=== PATIENT | female | born 1935 | race Caucasian/White ===

== ENCOUNTER → 2018-01-02 11:06 | Outpatient (CLI) | payer MEDICARE, OTHER, SELFPAY ==
--- NOTE | 2018-01-02 | DI.MG.S_ITS ---
BILATERAL DIGITAL SCREENING MAMMOGRAM 3D/2D WITH CAD: 01/02/2018 CLINICAL: Routine screening. Comparison is made to exams dated: 12/09/2012 mammogram, 01/11/2011 mammogram, and 05/19/2009 mammogram - [facility]. There are scattered fibroglandular elements in both breasts. Current study was also evaluated with a Computer Aided Detection (CAD) system. There are benign vascular calcifications in both breasts. There is a mole marker on the left breast. No significant masses, calcifications, or other findings are seen in either breast. There has been no significant interval change. IMPRESSION: There is no mammographic evidence of malignancy. A 1 year screening mammogram is recommended.(01/03/2019) This exam was interpreted at Station ID: [id number]. NOTE: For mammograms, a report in lay terms will be sent to the patient. Approximately 15% of breast malignancies will not be visualized mammographically. In the management of a palpable breast mass, a negative mammogram must not discourage biopsy of a clinically suspicious lesion. Electronically Signed By: Adrian bello/lea:01/03/2018 12:02:35 letter sent: Normal Exam ACR BI-RADS Category 2: Benign Finding(s) 3342F
== END ==
PROVIDERS: Family Provider Family Medicine; PCP Family Medicine; Visit Provider Family Medicine
DX: Z12.31 Encounter for screening mammogram for malignant neoplasm of breast (principal)
CPT/HCPCS: 77063; 77067

== ENCOUNTER → 2019-02-06 15:15 | Outpatient (CLI) | payer MEDICARE, OTHER, SELFPAY ==
--- NOTE | 2019-02-06 | DI.MG.S_ITS ---
BILATERAL DIGITAL SCREENING MAMMOGRAM 3D/2D WITH CAD: 02/06/2019 CLINICAL: Routine screening. Comparison is made to exams dated: 01/02/2018 mammogram - [facility], 12/09/2012 mammogram, and 01/11/2011 mammogram - [facility]. There are scattered fibroglandular elements in both breasts. Current study was also evaluated with a Computer Aided Detection (CAD) system. There are benign calcifications in both breasts. There also are benign vascular calcifications in both breasts. There is a mole marker on the left breast. No significant masses, calcifications, or other findings are seen in either breast. There has been no significant interval change. IMPRESSION: There is no mammographic evidence of malignancy. A 1 year screening mammogram is recommended. This exam was interpreted at Station ID: [id number]. NOTE: For mammograms, a report in lay terms will be sent to the patient. Approximately 15% of breast malignancies will not be visualized mammographically. In the management of a palpable breast mass, a negative mammogram must not discourage biopsy of a clinically suspicious lesion. Electronically Signed By: Slade dodd/lea:02/06/2019 15:59:45 letter sent: Normal Exam ACR BI-RADS Category 2: Benign Finding(s) 3342F
== END ==
PROVIDERS: PCP Family Medicine; Visit Provider Family Medicine
DX: Z12.31 Encounter for screening mammogram for malignant neoplasm of breast (principal)
CPT/HCPCS: 77063; 77067

== ENCOUNTER → 2020-03-08 16:16 | Outpatient (CLI) | payer MEDICARE, OTHER, SELFPAY ==
--- NOTE | 2020-03-08 16:18 | DI.MG.S_ITS ---
BILATERAL DIGITAL SCREENING MAMMOGRAM 3D/2D WITH CAD: 03/08/2020 CLINICAL: Routine screening. Comparison is made to exams dated: 02/06/2019 mammogram, 01/02/2018 mammogram - [facility], and 12/09/2012 mammogram - [facility]. There are scattered fibroglandular elements in both breasts. Current study was also evaluated with a Computer Aided Detection (CAD) system. There are benign calcifications in both breasts. There also are benign vascular calcifications in both breasts. There is a mole marker on the left breast. No significant masses, calcifications, or other findings are seen in either breast. There has been no significant interval change. IMPRESSION: BENIGN There is no mammographic evidence of malignancy. A 1 year screening mammogram is recommended. This exam was interpreted at Station ID: [id number]. NOTE: For mammograms, a report in lay terms will be sent to the patient. Approximately 15% of breast malignancies will not be visualized mammographically. In the management of a palpable breast mass, a negative mammogram must not discourage biopsy of a clinically suspicious lesion. Electronically Signed By: Keanu bacon/lea:03/08/2020 19:45:14 letter sent: Normal Exam ACR BI-RADS Category 2: Benign Finding(s) 3342F
== END ==
PROVIDERS: PCP Family Medicine; Referring Provider Family Medicine; Visit Provider Family Medicine
DX: Z12.31 Encounter for screening mammogram for malignant neoplasm of breast (principal)
CPT/HCPCS: 77063; 77067

== ENCOUNTER → 2022-01-17 14:18 | Outpatient (CLI) | payer MEDICARE, OTHER, SELFPAY ==
--- NOTE | 2022-01-17 | DI.RAD.S_ITS ---
PROCEDURE: XR SHOULDER LT MIN 2V INDICATIONS: PAIN IN LT/RT SHOULDER TECHNIQUE: 3 views of the shoulder were acquired. COMPARISON: [facility], CR, XR SHOULDER RT MIN 2V, 01/17/2022, 14:29. FINDINGS: Bones: No fractures or dislocations. No suspicious bony lesions. Downsloping acromion. Mild glenohumeral joint degeneration. Visualized ribs appear intact. Soft tissues: No suspicious soft tissue calcifications. IMPRESSION: 1. Downsloping acromion, which could impinge the rotator cuff tendons. If clinical symptoms persist or clinical suspicion for internal derangement is high, MRI is suggested for further evaluation. 2. Mild glenohumeral joint degeneration Dictated by: Meg Monroy M.D. on 01/17/2022 at 16:59 Approved by: Meg Monroy M.D. on 01/17/2022 at 17:00
--- NOTE | 2022-01-17 14:25 | DI.RAD.S_ITS ---
PROCEDURE: XR SHOULDER RT MIN 2V INDICATIONS: PAIN IN LT/RT SHOULDER TECHNIQUE: 3 views of the shoulder were acquired. COMPARISON: [facility], CR, XR SHOULDER LT MIN 2V, 01/17/2022, 14:29. FINDINGS: Bones: No fractures or dislocations. No suspicious bony lesions. Mild acromioclavicular and glenohumeral joint degeneration. Visualized ribs appear intact. Soft tissues: No suspicious soft tissue calcifications. IMPRESSION: No acute osseous abnormalities. Mild degenerative joint disease. If clinical symptoms persist or clinical suspicion for internal derangement is high, MRI is suggested for further evaluation. Dictated by: Meg Monroy M.D. on 01/17/2022 at 16:58 Approved by: Meg Monroy M.D. on 01/17/2022 at 16:59
--- NOTE | 2022-01-17 14:25 | DI.RAD.S_ITS ---
PROCEDURE: XR CERVICAL SPINE 2V OR 3V INDICATIONS: PAIN IN LT/RT SHOULDER TECHNIQUE: 3 view(s) of the cervical spine were acquired. COMPARISON: None. FINDINGS: Bones: No fractures or dislocations to the T1 level. The lateral masses of C1 appear intact on the odontoid view. No suspicious bony lesions. Disc space narrowing and facet arthropathy noted in the mid cervical spine. Grade 1 degenerative anterior spondylolisthesis noted at C3-4 Soft tissues: No prevertebral soft tissue swelling. 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 on 01/17/2022 at 18:00
--- NOTE | 2022-01-17 14:25 | DI.RAD.S_ITS ---
PROCEDURE: XR THORACIC SPINE 3V INDICATIONS: PAIN IN LT/RT SHOULDER TECHNIQUE: 3 views of the thoracic spine were acquired. COMPARISON: None. FINDINGS: Bones: No fractures or dislocations. No suspicious bony lesions. 12 pairs of ribs are noted, and appear intact where visualized. Soft tissues: No paravertebral stripe thickening. Incidental note is made of air beneath the right hemidiaphragm, partially imaged. Aortic atherosclerotic vascular calcification noted in the arch. IMPRESSION: 1. Unremarkable thoracic spine 2. Air beneath the right hemidiaphragm, partially imaged. While this probably reflects a colonic interposition, consider follow-up full right chest x-ray or CT to evaluate for pneumoperitoneum Approved by: Rivas Baeza M.D. on 01/17/2022 at 17:59
== END ==
PROVIDERS: PCP Family Medicine; Referring Provider Family Medicine; Visit Provider Family Medicine
DX: M19.011 Primary osteoarthritis, right shoulder (principal); M19.012 Primary osteoarthritis, left shoulder; I70.0 Atherosclerosis of aorta; M47.812 Spondylosis without myelopathy or radiculopathy, cervical region; M50.30 Other cervical disc degeneration, unspecified cervical region; M25.511 Pain in right shoulder; M25.512 Pain in left shoulder
CPT/HCPCS: 72040; 72072; 73030

== ENCOUNTER → 2022-01-24 14:18 | Outpatient (CLI) | payer MEDICARE, OTHER, SELFPAY ==
--- NOTE | 2022-01-24 14:20 | DI.RAD.S_ITS ---
PROCEDURE: XR CHEST 2V INDICATIONS: Hypertension TECHNIQUE: 2 views of the chest were acquired. COMPARISON: [facility], CR, XR THORACIC SPINE 3V, 01/17/2022, 14:29. FINDINGS: Surgical changes and devices: None. Lungs and pleura: Lungs are clear. No pleural effusions or pneumothorax. 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 Mediastinum: Mediastinal contours are normal. Heart size is normal. Bones and chest wall: No suspicious bony abnormalities. Soft tissues appear unremarkable. IMPRESSION: 1. Interposition of bowel between the right hemidiaphragms and the and the liver and spleen; otherwise no acute cardiopulmonary disease. Dictated by: Roderick Martinez [facility] Interpreted: Angie Arango MD on 01/24/2022 at 14:38 Transcribed by: EFRAIN on 01/24/2022 at 14:39 Approved by: Angie Arango M.D. on 01/24/2022 at 15:39
== END ==
PROVIDERS: PCP Family Medicine; Referring Provider Family Medicine; Visit Provider Family Medicine
DX: I10 Essential (primary) hypertension (principal)
CPT/HCPCS: 71046

== ENCOUNTER → 2023-02-08 14:07 | Outpatient (CLI) | payer MEDICARE, OTHER, SELFPAY ==
--- NOTE | 2023-02-08 14:12 | DI.RAD.S_ITS ---
PROCEDURE: XR CHEST 2V INDICATIONS: cough TECHNIQUE: 2 views of the chest were acquired. COMPARISON: [facility], CR, XR CHEST 2V, 01/24/2022, 14:20. FINDINGS: Surgical changes and devices: None. Lungs and pleura: Lungs are clear. No pleural effusions or pneumothorax. Mediastinum: Mediastinal contours are normal. Heart size is normal. Bones and chest wall: No suspicious bony abnormalities. Soft tissues appear unremarkable. IMPRESSION: No acute cardiopulmonary abnormality is seen. Dictated by: Richa Tovar MD, PhD on 02/08/2023 at 14:47 Approved by: Richa Tovar MD, PhD on 02/08/2023 at 14:48
== END ==
PROVIDERS: PCP Family Medicine; Referring Provider Family Medicine; Visit Provider Family Medicine
DX: R05.9 Cough, unspecified (principal)
CPT/HCPCS: 71046

== ENCOUNTER → 2024-01-17 10:26 | Outpatient (CLI) | payer MEDICARE, OTHER, SELFPAY ==
--- NOTE | 2024-01-17 10:28 | DI.MRI.S_ITS ---
PROCEDURE: MR CERVICAL SPINE WO CON INDICATIONS: SPONDYLOSIS WITH RADICULOPATHY,CERVICAL REGION TECHNIQUE: Noncontrast sagittal T1 spin echo and T2 fast spin echo, sagittal STIR, foraminal oblique sagittal T2 fast spin echo, and axial gradient echo or T2 fast spin echo through the cervical spine. COMPARISON: None. FINDINGS: Straightening of cervical spine. Mild anterolisthesis of C2 on C3, C3 on C4, C4 on C5, and C7 on T1. Vertebral body height of cervical spine is well maintained. Multilevel disc bulge and disc desiccation. Marrow signal is normal for age. Cord signal: Unremarkable Right neural foraminal stenosis: Moderate at C3-4, C4-5, severe at C 5 6, mild at C6-7, moderate at C7-T1. Left neural foraminal stenosis: Moderate at C3-4, severe at C4-5, moderate at C5-6, mild at C6-7, severe at C7-T1. Axial images: C2-3: Moderate right facet arthropathy. No central canal stenosis. C3-4: Posterior disc uncovering. Moderate bilateral facet arthropathy. No central canal stenosis. C4-5: Posterior disc osteophyte complex. Uncovertebral arthropathy. Moderate bilateral facet arthropathy, left greater right. Mild central canal stenosis. C5-6: Posterior disc osteophyte complex. Uncovertebral arthropathy. Moderate bilateral facet arthropathy, left greater right. Mild central canal stenosis. C6-7: Posterior disc osteophyte complex. No central canal stenosis. C7-T1: Posterior disc uncovering. Severe left facet arthropathy. No central canal stenosis. Other soft tissue findings: 9 mm T2 hyperintense lesion at the left aspect of the upper esophagus (series 4, image 39), resulting in mild mass effect on the esophagus, at the level of T1, nonspecific. IMPRESSION: 1. Multilevel degenerative changes of the cervical spine, with severe neural foraminal stenosis at right C5-6, left C4-5 and left C7-T1. 2. 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 Dictated by: Valerie Concepcion M.D. on 01/17/2024 at 14:45 Approved by: Valerie Concepcion M.D. on 01/17/2024 at 14:59
== END ==
PROVIDERS: PCP Family Medicine; Referring Provider Physical Medicine & Rehabilitation; Visit Provider Physical Medicine & Rehabilitation
DX: M47.22 Other spondylosis with radiculopathy, cervical region (principal); M48.02 Spinal stenosis, cervical region; K22.9 Disease of esophagus, unspecified
CPT/HCPCS: 72141